=== PATIENT | female | born 1960 | race Caucasian/White ===

== ENCOUNTER 2023-10-02 11:30 | Outpatient (RCR) | payer BC, SELFPAY | END 2024-01-03 09:48 | disposition home or self-care (01) | PROVIDERS: PCP Student in an Organized Health Care Education/Training Program; Visit Provider Student in an Organized Health Care Education/Training Program | DX: N39.46 Mixed incontinence (principal); N94.10 Unspecified dyspareunia; N94.2 Vaginismus; Z51.89 Encounter for other specified aftercare | CPT/HCPCS: 97110; 97112; 97162; 97535 ==

== ENCOUNTER 2024-11-03 03:57 | Day surgery (SDC) | payer BC, SELFPAY ==
--- OUTSIDE RECORDS SUMMARY | 2016-03-28 05:38 | XMS_ITS | Continuity of Care Document ---
Author Organization [facility] Address [address] [address] [place] [address] Phone Care Team Providers Care Measurement Supervisor Name Role Phone Link Db DUMONT Unavailable Unavailable Advance Directives Directive Yes / No Effective Date File Name No Information Encounters Encounter Description Practice Location Reason(s) For Visit Diagnoses Date Provider Providers Copied on Encounter [facility], [address] [address], [place], [place], [id number], [place] tel:[phone] [facility] No Information Link MD Ace. [address] [facility], [facility] [address], [place], [place], [id number], [place]. tel:[phone] Referring Provider: Perla Billy MD [place], [address] [place], [address]. tel:[phone] Family History Family Member Type Diagnosis Age At Onset No Information Payers Payer name Insurance type Covered alliance party ID Authoriza tion(s) No Information Social History Type Description Quantity Date Captured Comments Sex Female Smoking Status No Information Chief Complaint And Reason For Visit No Information Reason For Referral Reason For Referral No Information History Of Present Illness Encounter Date Complaint History Of Prese nt Illness No Information Functional Status Date Functional Assessmen t No Information Instructions Date Instruction Additional Infor mation No Information Assessments Type Assessment Date No Information Patient Care Teams Name Effective Dates (start - stop) Status Members No Information
--- OUTSIDE RECORDS SUMMARY | 2016-03-28 05:38 | XMS_ITS | Continuity of Care Document ---
Author Organization [facility] Address [address] [address] [place] [address] Phone Care Team Providers Care Order Filler Name Role Phone Link Db DUMONT Unavailable Unavailable Advance Directives Directive Yes / No Effective Date File Name No Information Encounters Encounter Description Practice Location Reason(s) For Visit Diagnoses Date Provider Providers Copied on Encounter [facility], [address] [address], [place], [place], [id number], [place] tel:[phone] [facility] No Information Link MD Ace. [address] [facility], [facility] [address], [place], [place], [id number], [place]. tel:[phone] Referring Provider: Perla Billy MD [place], [address] [place], [address]. tel:[phone] Family History Family Member Type Diagnosis Age At Onset No Information Payers Payer name Insurance type Covered constitution party ID Authoriza tion(s) No Information Social [...]
[2024-11-03] VITALS (20 sets, daily range): BP systolic 100–144; BP diastolic 60–115; PULSE 64–91; RESP 12–20; TEMP 36.7–36.9; O2SAT 89–98; BMI 42.2
--- OUTSIDE RECORDS SUMMARY | 2024-11-03 03:59 | XMS_ITS | Clinical Summary ---
Author Organization [facility] Address [address] [place] [address] Care Team Providers Care Wooden Box Maker Name Role Phone Valentine Schaefer MD Primary Care Prov ider Allergies Active Allergy Reactions Criticality Noted Date Comments Latex Contact Dermatitis 12/18/2018 Medications CPAP New CPAP at 11 cm, with mask of choice, supplies a needed, heat and humidity & climate controlled tubing; length of need 99; call her to make CPAP appointment to get CPAP and f/u with me in 1 month 1 Device 0 06/26/19 14 Active sfnphnx-eajb-by lod-htmf-vpxufs 100 mg-150 mg- 50 mg-150 mg capIndications: Arthralgia, unspecified joint Take by mouth. 0 02/11/20 21 Active Famotidine-Ca Carb-Mag Hydrox (Pepcid Complete) 10-800-165 mg chew As needed 0 02/15/20 21 Active clotrimazole (LOTRIMIN) 1 % creamIndication s:Vulvar candidiasis Apply topically to affected area(s) two times daily. Use for 10-14 days. 60 g 09/09/19 24 Active hydrOXYzine HCL (ATARAX) 25 mg tabletIndicatio ns:Anxiety Take 2 Tablets (50 mg) by mouth every 6 hours if needed for Anxiety. 90 Tablet 3 11/19/19 24 Active cholecalciferol , Vitamin D3, (Vitamin D-3) 5,000 unit tab tablet Take by mouth once daily. Active estradioL 0.01% (0.1 mg/g) vaginal creamIndication s:Genitourinary syndrome of menopause Apply 1 g/day intravaginally for 2 weeks, then 1 g one to three times per week. 42.5 g 3 08/27/19 25 Active clindamycin 1 % gelIndications: Folliculitis Apply thin layer to affected areas 1-2 times a day as needed. 60 g 11 09/30/19 25 Active buPROPion 300 mg Extended-Releas e tabletIndicatio ns:JATINDER (generalized anxiety disorder),Depre ssion, major, single episode, severe (HC) Take 1 Tablet (300 mg) by mouth once daily. 90 Tablet 3 10/08/19 25 Active buPROPion 150 mg Extended-Releas e tabletIndicatio ns:JATINDER (generalized anxiety disorder),Depre ssion, major, single episode, severe (HC) Take 1 tablet (150mg) once daily for 1 week then increase to 300mg once daily 60 Tablet 1 08/27/19 25 025 Discontin ued(Reord er (E-cancel not sent)) Active Problems Problem Noted Date Diagnosed Date H/o Bulimia nervosa 09/09/2023 Overview (09/09/2023): H/o bulimia in 20s/30s. Has been through eating disorder treatment. She has had history of gastric sleeve. Has a lot of concern about her weight impairing her ability to move. She would like weight loss medication. JATINDER (generalized anxiety disorder) 09/09/2023 Overview (09/27/2023): Stopped lexapro, worsened anxiety On sertraline Depression, major, single episode, severe 2023 Genitourinary syndrome of menopause 09/09/2023 Overview (09/27/2023): On topical estradiol S/P bariatric surgery 07/15/2014 Pre-diabetes 04/15/2013 Sleep apnea 04/06/2013 Rosacea 02/11/2013 Vitamin D deficiency 08/29/2009 Resolved Problems Problem Noted Date Diagnosed Date Resolved Date Pap smear for cervical cancer screening 07/02/2023 07/02/2023 Overview (07/02/2023): 06/2023 NIL/HPV negative Plan: Pap/HPV due 06/2028 Ureteral stone with hydronephrosis 11/13/2018 09/09/2023 Abdominal pannus 08/13/2017 09/09/2023 Overview (08/13/2017): Added automatically from request for surgery [id number] Morbid obesity 04/06/2013 07/15/2017 Encounters Date Type Department Care Team Description 10/08/2024 Telephone [facility] [address] [place] [address] Ousmane Bellamy MD 10/08/2024 Refill [facility] [address] [place] [address] Ousmane Bellamy MD 10/07/2024 9:50 AM CDT Office Visit [facility] [address] [place] [address] Valentine Schaefer MD Follow Up (Wellbutrin - feeling good ) 10/07/2024 Travel 09/29/2024 10:30 AM CDT Office Visit [facility] [id number] [place] [address] [address] [place] [address] Penny Hein MD Derm Problem 09/29/2024 Travel 09/15/2024 7:30 AM CDT Nurse/Clinic Staff Only [address] [address] Testing (HST Return/Download) 09/14/2024 2:00 PM CDT Nurse/Clinic Staff Only [address] [address] Testing (HST Set-up) 09/14/2024 Procedure Only [address] [address] Ousmane Bellamy MD Results (HST) 09/14/2024 Travel 09/08/2024 10:30 AM CDT Office Visit [facility] [id number] [place] [address] [address] [place] [address] Marcos Quiles MD Consult (Panniculectomy and Mons Pubis excess Skin) 09/08/2024 Travel 08/26/2024 10:15 AM CDT Office Visit [facility] [address] [place], [place] [id number] Valentine Schaefer MD Physical (64 year old ); Medication Management (Anxiety has improved. /Energy is down, no motivation/Would like to wean off Cymbalta ) 08/26/2024 Travel from Last 3 Months Immunizations Immunization Administration Dates Next Due COVID-19 vaccine ([employer] 30mcg/0.3mL) P F, MDV 09/26/2020,09/05/2020 Influenza, IIV3 (Age >=3 years) 03/24/2011 Pneumococcal Conj 20-valent (Prevnar 20) 025 Td (Age >=7 Years) 09/27/2023 Tdap 08/25/2009 Zoster (Shingrix-RZV, recombinant) 12/18/2023, Family History Medical History Relation Name Comments Heart Disease Father heart disease in hi s80s Heart Disease Maternal Grandmother Cancer Mother melanoma Cancer-ovarian Mother Unknown Paternal Grandfather Unknown Paternal Grandmother Diabetes Paternal Uncle 1 Cancer Paternal Uncle 2 stomach CA Cancer-breast No Family History Relation Name Status Comments Brother Alive 1/2 Father Other no contact or h x Maternal Grandfather no cont act Maternal Grandmother (Age 86) ca bg, heart disease Mother Alive melanoma Paternal Grandfather Paternal Grandmother Paternal Uncle 1 Paternal Uncle 2 Social History Tobacco Use Types Packs/Day Years Used Date Smoking Tobacco: Former Cigarettes Smokeless Tobacco: Never Tobacco Cessation:Counseling Given: Not Answered Comments:Quit in her 20's Alcohol Use Standard Drinks/Week Comments Yes 4 (1 standard drink = 0.6 oz pur e alcohol) PHQ-2 Answer Date Recorded PHQ-2 TOTAL SCORE 4 08/26/2024 Social Connections Answer Date Recorded Do you often feel lonely or isolated from those around you? 0 10/07/2024 Financial Resource Strain Answer Date R ecorded Difficulty of Paying Living Expenses 3 10/07/2024 Difficulty of Paying Living Expenses Not on file 10/07/2024 Food Insecurity Answer Date Recorded Do you worry your food will run out before you are able to buy more? 1 10/07/2024 Transportation Needs Answer Date Record ed Does lack of transportation keep you from medica l appointments? 1 10/07/2024 Does lack of transportation keep you from work, meetings or getting things that you need? 1 10/07/2024 Housing Stability Answer Date Recorded What is your housing situation today? 1 10/07/2024 Utilities Answer Date Recorded Do you have trouble paying f or utilities (for example, heat, electricity, water, phone)? 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 Not on file Not on file N ot on file Obstetrics History Para Term AB IAB SAB Ectopic Multiple Livin g Live Births 3 1 Date Outcome GA Total Labor Labor/2nd/3rd Weight Sex Type Anes PTL Misa A1 A5 Name Clin Para Last Filed Vital Signs Vital Sign Reading Time Taken Comments Blood Pressure 125/84 10/07/2024 9:59 AM CDT Pulse 71 10/07/2024 9:59 AM CDT Temperature 36.8 C (98.2 F) 06/21/2023 10:57 AM WIRE MACHINE CUTTER Respiratory Rate 16 09/08/2024 11:01 AM CDT Oxygen Saturation 97% 10/07/2024 9:59 AM CDT Inhaled Oxygen Concentration - - Weight 109.8 kg (242 lb) 10/07/2024 9:59 AM CDT Height 158.1 cm (5' 2.25) 09/08/2024 11:01 AM C DT Body Mass Index 43.91 09/08/2024 11:01 AM CDT Plan of Treatment Upcoming Encounters Date Type Department Care Team (Late st Contact Info) Description 11/25/2024 10:00 AM CDT Office Visit [facility] [address] [place] [address] Ousmane Bellamy MD [address] [place] [address] Scheduled Procedures Name Priority Associated Diagnoses Date/Ti me SURGICAL PROCEDURE (TYPE PRO CEDURE DESCRIPTION BELOW) Elective Pannus, abdominal Intertrigo Health Maintenance Due Date Last Done Comments RSV vaccine for adults or (1 - Risk 60-74 years 1-dose series) 2020 COVID-19 vaccine series ( season) 2024 05/06/2021, 09/26/2020, 09/05/2020 Influenza Vaccine (Season Ended) 2025 03/24/2011 Mammogram for age 45-75 05/29/2025 05/29/19, 02/12/2023, 12/11/2021, Additional history exists BMI (ht and wt on same day) for age 18+ 09/08/2025 09/08/2024, 08/26/2024, 09/09/2023, Additional history exists Depression screening for age 12+ 09/08/2025 09/08/2024, 08/26/2024, 06/26/2024, Additional history exists Fecal testing sDNA-FIT (Cologuard) for age 45-75 07/03/2026 07/03/2023 Pap test for age 21-65 06/21/2028 , 06/21/2023, 06/23/2018, Additional history exists Lipids for age 45-75 08/26/2029 08/26/2024, 06/21/2023, 08/07/2022, Additional history exists Tetanus booster 09/26/2033 09/27/2023, 08/25/2009 Tdap Completed 08/25/2009 Hepatitis C screening for age 18-79 Completed 06/11/2018 HIV for age 15-65 Completed 06/21/2023 Zoster (shingles) series for age 50+ Completed 12/18/2023, 08/05/2023 Pneumococcal series for age 50+ Completed 08/26/2024 Hepatitis B series for 19+ Aged Out N o longer eligible based on patient's age to complete this topic Medical Devices Implanted Type Area Oil Pit Attendant Device Identifier Shelf Expiration Date Model / Serial / Lot Stent Uret [id number] P[employer]lex [employer] - [id number] Implanted:Qty: 1 on 12/19/2018 by Harshal Hightower MD at [facility] Left: Urethra [facility] 09/14/2021 [id number] / / [id number] Procedures Procedure Name Priority Date/Time Associated Diagnosis Comments HOME SLEEP TEST TYPE 3 PORTABLE Routine 09/14/2024 11:59 PM CDT S/P bariatric surgery BASIC METABOLIC PANEL Routine 08/26/2024 11:29 AM CDT S/P bariatric surgery VITAMIN B1 (THIAMINE) BLOOD Routine 08/26/2024 11:29 AM CDT S/P bariatric surgery VITAMIN B12 Routine 08/26/2024 11:29 AM CDT S/P bariatric surgery LIPID PANEL W REFLEX MEASURED LDL Routine 08/26/2024 11:29 AM CDT Screening cholesterol level HEPATIC FUNCTION PANEL Routine 08/26/2024 11:29 AM CDT Screening for metabolic disorder CBC WITH AUTO DIFFERENTIAL Routine 08/26/2024 11:29 AM CDT Routine general medical examination at a health care facility Screening for metabolic disorder HEMOGLOBIN A1C MONITORING (POCT) Routine 08/26/2024 11:27 AM CDT Pre-diabetes XR MAMMO LOAN BILAT SCREEN Routine 05/29/2024 3:30 PM WIRE MACHINE CUTTER Visit for screening mammogram SDNA-FIT EXTERNAL (COLOGUARD) Routine 07/03/2023 1:00 PM WIRE MACHINE CUTTER Screening for colon cancer ANTI HIV 1/2 Routine 06/21/2023 12:01 PM WIRE MACHINE CUTTER Encounter for screening for HIV HPV HIGH RISK Routine 06/21/2023 10:00 AM WIRE MACHINE CUTTER Cervical cancer screening ANTI HCV Routine 06/11/2018 9:36 AM WIRE MACHINE CUTTER Encounter for hepatitis C screening test for low risk patient from Last 3 Months or Most Recently Relevant to Health Maintenance Results * HOME SLEEP TEST TYPE 3 PORTABLE (09/14/2024 11:59 PM CDT) Narrative Ousmane Bellamy MD - 09/14/2024 11:59 PM CDT Ousmane Bellamy MD 09/15/2024 5:36 PM Home Sleep Test Name: Carmelita Cruz Location: [facility] notes: This is a single night home sleep apnea test. The study is performed in the context of a clinical suspicion for sleep apnea. Carmelita Cruz ( 1960) is studied using a T3 Device using nasal pressure transducer, thoracoabdominal respiratory impedence plethysmography belts, pulse oximetry, snore microphone and actigraphy for body position. The study is scored by a RPSGT and interpreted by a Diplomate of the [place] Board of [employer]. Raw summary data is scanned into this report as a separate document. An epoch by epoch review of the data has been performed by the interpreting physician. Scored following the AASM Manual for the Scoring of Sleep and Associated Events, V3. Respiratory Event Index (MICHAELA) Oxygen Desaturation Index (JAMES) REI4% 7.3 ODI4%: 6.9 REI3% 15.7 ODI3%: 19.3 Supine MICHAELA: 20.9 Johnny Saturation 85 % Lateral MICHAELA: 11.8 Time Below 88% 16.1 minutes Weight: Wt Readings from Last 1 Encounters: 09/08/24 108.4 kg (239 lb) Other data: Recording Duration: 510.0 minutes Time in Bed: 399.7 minutes Estimated sleep efficiency [%]: 93 % Oximeter Quality: 94.6 % Flow Quality: 100.0 % RIP Quality: 100.0 % Supine time: 166.8 minutes Average SpO2: 91.7 % Pulse Average: 55.0 bpm Additional Comments: None IMPRESSION: Obstructive Sleep Apnea (327.23, G47.33) RECOMMENDATIONS: - This is moderate sleep apnea - Treatment for obstructive sleep apnea is recommended and CPAP would generally be considered first-line therapy for this severity of sleep apnea. Consider auto-titrating CPAP 5-20 cm. - Consider a referral to Health Weight Management for patients with a BMI > 30. - Follow-up with a provider to discuss results is recommended. - Patients should be advised to avoid critical tasks, such as driving, whenever drowsy. - Patients should try to achieve at least 7-8 hours of sleep on a consistent basis. - The MICHAELA is a surrogate for AHI. For reimbursement and/or prior authorization purposes, it would be appropriate to list the MICHAELA as an AHI when the latter is accepted, but not the former. Ousmane Mitchellomate, Board of Sleep Medicine Recording Information Recording Date: 09/14/2024 Analysis Start Time: 12:20 AM Recording Tags: Analysis Stop Time: 6:59 AM Device Type: T3S Analysis Duration (TRT): 6h 39m Est. Total Sleep Time: 6h 24m Position and Analysis Time Duration Percentage Supine (in TST): 166.8 m 43.3 % Non-Supine (in TST): 217.9 m 56.6 % Upright (in TRT): 14.8 m 3.7 % Movement (in TST): 28.8 m 7.5 % Invalid Data (Excluded): 0 m 0 % Respiratory Indices Index Total Supine Non-supine Count Apneas + Hypopneas (REI3%): 15.7 /h 20.9 /h 11.8 /h 101 Apneas + Hypopneas (REI4%) 7.3 /h /h /h Apneas: 1.2 /h 0 /h 2.2 /h 8 Obstructive (OA): 0.9 /h 0 /h 1.7 /h 6 Mixed (MA): 0 /h 0 /h 0 /h 0 Central (CA): 0.3 /h 0 /h 0.6 /h 2 Hypopneas 3%: 14.5 /h 20.9 /h 9.6 /h 93 Hypopneas 4%: 0 /h 58 /h 35 /h 0 Respiration Rate (per m): 14.3 /m 14.3 /m 14.2 /m Percentage of Sleep Duration Snore: 37.6 % 43.3 % 33.3 % 144.7 m Flow Limitation: 0 % 0 % 0 % 0 m Average Snore Volume 67.4 dB Percent of time greater than 80dB: Percent of 10.1 % Oxygen Saturation (SpO2) Total Supine Non-supine Oxygen Desaturation Index (JAMES): 19.3 /h 26.3 /h 14 /h Average SpO2: 91.7 % 90.8 % 92.3 % Minimum SpO2: 85 % 85 % 86 % SpO2 Duration < 90% 10.5 % (40.6m) 20.3 % 3.2 % SpO2 Duration <= 88% 4.2 % (16.1m) 8.8 % 0.7 % Pulse in TST Quality Average: 55 bpm Oximeter: 94.6 % Maximum: 82 bpm Nasal Cannula: 100 % Minimum: 44 bpm Abdomen RIP: 100 % Duration < 40 bpm: 0 m Thorax RIP: 100 % Duration > 100 bpm: 0 m Valentine Schaefer MD SLEEP CENTER Fi nal Result * VITAMIN B1 (THIAMINE) BLOOD (08/26/2024 11:29 AM CDT) [facility] VITAMIN B1 (THIAMINE), BLOOD, LC/MS/MS 117 78 - 185 nmol/L [facility] Comment: (Note) Vitamin supplementation within 24 hours prior to blood draw may affect the accuracy of the results. This test was developed and its analytical performance characteristics have been determined by [facility]. It has not been cleared or approved by FDA. This assay has been validated pursuant to the CLIA regulations and is used for clinical purposes. [facility] [address] [place] [address],[address] [place] [id number] Yung Cespedes MD, PhD Blood BLOOD SPECIMEN / Unknown 08/26/2024 11:29 AM CDT 08/26/2024 11:29 AM CDT Valentine Schaefer MD SEND OUTS Fi nal Result [facility] [address] [place] [phone], [facility] [address] [place] [address], [address] [place] [address] * (ABNORMAL) LIPID PANEL W REFLEX MEASURED LDL (08/26/2024 11:29 AM CDT) [facility] CHOLESTEROL, TOTAL 281(H) <200 mg/dL [facility] HDL CHOLESTEROL 86 > OR = 50 mg/dL [facility] TRIGLYCERIDES 119 <150 mg/dL [facility] LDL-CHOLESTEROL 170(H) mg/dL (calc) [facility] Comment: Reference range: <100 Desirable range <100 mg/dL for primary prevention; <70 mg/dL for patients with CHD or diabetic patients with > or = 2 CHD risk factors. LDL-C is now calculated using the Dave calculation, which is a validated novel method providing better accuracy than the Friedewald equation in the estimation of LDL-C. [place] LEMUS et al. ETHAN. 2013;310(19): 9017-0965 (http://education.[employer]/faq/SOJ036) CHOL/HDLC RATIO 3.3 <5.0 (calc) [facility] NON HDL CHOLESTEROL 195(H) <130 mg/dL (calc) [facility] Comment: For patients with diabetes plus 1 major ASCVD risk factor, treating to a non-HDL-C goal of <100 mg/dL (LDL-C of <70 mg/dL) is considered a therapeutic option. Blood BLOOD SPECIMEN / Unknown 08/26/2024 11:29 AM CDT 08/26/2024 11:29 AM CDT Valentine Schaefer MD CHEMISTRY Fi nal Result [email or web address] [address] [place] [address], [facility] [address] [place] [address] * (ABNORMAL) CBC AND DIFFERENTIAL (08/26/2024 11:29 AM CDT) WHITE BLOOD CELL COUNT 3.3(L) 3.8 - 10.8 Thousand/u L [facility] RED BLOOD CELL COUNT 4.94 3.80 - 5.10 Million/uL [facility] HEMOGLOBIN 14.9 11.7 - 15.5 g/dL [facility] HEMATOCRIT 45.5(H) 35.0 - 45.0 % [facility] MCV 92.1 80.0 - 100.0 fL [facility] MCH 30.2 27.0 - 33.0 pg [facility] MCHC 32.7 32.0 - 36.0 g/dL [facility] Comment: For adults, a slight decrease in the calculated MCHC value (in the range of 30 to 32 g/dL) is most likely not clinically significant; however, it should be interpreted with caution in correlation with other red cell parameters and the patient's clinical condition. RDW 13.6 11.0 - 15.0 % [facility] PLATELET COUNT 242 140 - 400 Thousand/u L [facility] MPV 10.6 7.5 - 12.5 fL [facility] ABSOLUTE NEUTROPHILS 1,795 1,500 - 7,800 cells/uL [facility] ABSOLUTE LYMPHOCYTES 1,175 850 - 3,900 cells/uL [facility] ABSOLUTE MONOCYTES 261 200 - 950 cells/uL [facility] ABSOLUTE EOSINOPHILS 40 15 - 500 cells/uL [facility] ABSOLUTE BASOPHILS 30 0 - 200 cells/uL [facility] NEUTROPHILS 54.4 % [facility] LYMPHOCYTES 35.6 % [facility] MONOCYTES 7.9 % [facility] EOSINOPHILS 1.2 % [facility] BASOPHILS 0.9 % [facility] Blood BLOOD SPECIMEN / Unknown 08/26/2024 11:29 AM CDT 08/26/2024 11:29 AM CDT us Valentine Schaefer MD HEMATOLOGY Fi nal Result [email or web address] [address] [place] [address], [place] [phone] [facility] [address] [place] [address] * VITAMIN B12 (08/26/2024 11:29 AM CDT) VITAMIN B12 423 200 - 1,100 pg/mL [facility] Blood BLOOD SPECIMEN / Unknown 08/26/2024 11:29 AM CDT 08/26/2024 11:29 AM CDT Valentine Schaefer MD CHEMISTRY Fi nal Result Performing Organization Address City/[facility]/ZIP Co de Phone Number [email or web address] [facility] [address] [place] [address], [facility] [address] [place] [address] * LIVER PANEL (HEPATIC FUNCTION PANEL) (08/26/2024 11:29 AM CDT) Pathologist [facility] PROTEIN, TOTAL 7.0 6.1 - 8.1 g/dL [facility] ALBUMIN 4.5 3.6 - 5.1 g/dL [facility] GLOBULIN 2.5 1.9 - 3.7 g/dL (calc) [facility] ALBUMIN/GLOBULIN RATIO 1.8 1.0 - 2.5 (calc) [facility] BILIRUBIN, TOTAL 0.7 0.2 - 1.2 mg/dL [facility] BILIRUBIN, DIRECT 0.1 < OR = 0.2 mg/dL [facility] BILIRUBIN, INDIRECT 0.6 0.2 - 1.2 mg/dL (calc) [facility] ALKALINE PHOSPHATASE 67 37 - 153 U/L [facility] AST 21 10 - 35 U/L [facility] ALT 25 6 - 29 U/L [facility] Blood BLOOD SPECIMEN / Unknown 08/26/2024 11:29 AM CDT 08/26/2024 11:29 AM CDT Valentine Schaefer MD CHEMISTRY Fi nal Result [email or web address] [facility] [address] [place] [address], [place] [phone] [facility] [address] [place] [address] * BASIC METABOLIC PANEL (08/26/2024 11:29 AM CDT) Pathologist [facility] GLUCOSE 89 65 - 99 mg/dL [facility] Comment: Fasting reference interval UREA NITROGEN (BUN) 11 7 - 25 mg/dL [facility] CREATININE 0.67 0.50 - 1.05 mg/dL [facility] EGFR 98 > OR = 60 mL/min/1. 73m2 [facility] BUN/CREATININE RATIO SEE NOTE: 6 - 22 (calc) [facility] Comment: Not Reported: BUN and Creatinine are within reference range. SODIUM 140 135 - 146 mmol/L [facility] POTASSIUM 4.0 3.5 - 5.3 mmol/L [facility] CHLORIDE 103 98 - 110 mmol/L [facility] CARBON DIOXIDE 28 20 - 32 mmol/L [facility] ELECTROLYTE BALANCE 9 7 - 17 mmol/L (calc) [facility] CALCIUM 9.7 8.6 - 10.4 mg/dL [facility] Blood BLOOD SPECIMEN / Unknown 08/26/2024 11:29 AM CDT 08/26/2024 11:29 AM CDT Valentine Schaefer MD CHEMISTRY Fi nal Result [email or web address] [facility] [address] [place] [address], [facility] [address] [place] [address] * HEMOGLOBIN A1C MONITORING (POCT) (08/26/2024 11:27 AM CDT) [facility] POC HEMOGLOBIN A1C 5.6 <6.0 % OF TOTAL HGB [facility] Comment: Any point of care results exhibiting inconsistency with the patient's clinical status should be repeated using a different testing method. Blood BLOOD SPECIMEN / Unknown 08/26/2024 11:27 AM CDT 08/26/2024 11:28 AM CDT Valentine Schaefer MD CHEMISTRY Fi nal Result [facility] [address] [place] [address], [facility] [address] [place] [address] * XR MAMMO LOAN BILAT SCREEN (05/29/2024 3:30 PM WIRE MACHINE CUTTER) Anatomical Region Laterality Modality BREASTS, Breast Left, Breast Right Bilateral Mammography Impressions 05/29/2024 3:55 PM WIRE MACHINE CUTTER There is no radiographic evidence for malignancy. Recommend annual mammograms. MAMMOGRAM ASSESSMENT: ACR 1 Negative PATIENTS: You will also receive a letter with your examination results in an easy to read format. If you have questions about your results, please contact your referring provider. Narrative 05/29/2024 3:55 PM WIRE MACHINE CUTTER For Patients: As a result of the Century Cures Act, medical imaging exams and procedure reports are released immediately into your electronic medical record. You may view this report before your referring provider. If you have questions, please contact your health care provider. XR MAMMO LOAN BILAT SCREEN [[id number]] CLINICAL HISTORY: This is an asymptomatic 63 y.o. patient. INDICATION FOR EXAM: Mammogram Screening. TECHNIQUE: CC & MLO views were obtained. This study was evaluated with the assistance of Computer-Aided Detection. Breast Tomosynthesis was used in interpretation. COMPARISON FILM: [facility] FINDINGS: There are scattered areas of fibroglandular density. There are no dominant masses, suspicious micro calcifications or areas of architectural distortion. us Valentine Schaefer MD MAMMO Fi nal Result * SDNA-FIT EXTERNAL (COLOGUARD) (07/03/2023 1:00 PM WIRE MACHINE CUTTER) NONINV COLON CA DNA+OCC BLD SCRN STL-IMP Negative Negative 07/13/2023 12:24 AM WIRE MACHINE CUTTER [employer] [facility] (CLIA #:[id number]) Comment: NEGATIVE TEST RESULT. A negative Cologuard result indicates a low likelihood that a colorectal cancer (CRC) or advanced adenoma (adenomatous polyps with more advanced pre-malignant features) is present. The chance that a person with a negative Cologuard test has a colorectal cancer is less than 1 in 1500 (negative predictive value >99.9%) or has an advanced adenoma is less than 5.3% (negative predictive value 94.7%). These data are based on a prospective cross-sectional study of 10,000 individuals at average risk for colorectal cancer who were screened with both Cologuard and colonoscopy. (Matt James. et al, N Engl J Med 2014;370(14):8627-6290) The normal value (reference range) for this assay is negative. COLOGUARD RE-SCREENING RECOMMENDATION: Periodic colorectal cancer screening is an important part of preventive healthcare for asymptomatic individuals at average risk for colorectal cancer. Following a negative Cologuard result, the [place] [employer] and U.S. Multi-Society Task Force screening guidelines recommend a Cologuard re-screening interval of 3 years. References: [place] [employer] Guideline for Colorectal Cancer Screening: https://www.cancer.org/cancer/dspzh-qptdjd-rltmgk/mhnpckyqv-maroyjbau-eprjljz/ac s-rec ommendations.html.; Moshe HARRIS, José BAILON, Catherine EdouardK, Colorectal Cancer Screening: Recommendations for Physicians and Patients from the U.S. Multi-Society Task Force on Colorectal Cancer Screening , Am J Gastroenterology 2017; 112:4015-5067. TEST DESCRIPTION: Composite algorithmic analysis of stool DNA-biomarkers with hemoglobin immunoassay. Quantitative values of individual biomarkers are not reportable and are not associated with individual biomarker result reference ranges. Cologuard is intended for colorectal cancer screening of adults of either sex, 45 years or older, who are at average-risk for colorectal cancer (CRC). Cologuard has been approved for use by the U.S. FDA. The performance of Cologuard was established in a cross sectional study of average-risk adults aged 50-84. Cologuard performance in patients ages 45 to 49 years was estimated by sub-group analysis of near-age groups. Colonoscopies performed for a positive result may find as the most clinically significant lesion: colorectal cancer [4.0%], advanced adenoma (including sessile serrated polyps greater than or equal to 1cm diameter) [20%] or non- advanced adenoma [31%]; or no colorectal neoplasia [45%]. These estimates are derived from a prospective cross-sectional screening study of 10,000 individuals at average risk for colorectal cancer who were screened with both Cologuard and colonoscopy. (Matt Hanks et al, N Engl J Med 2014;370(14):4825-8515.) Cologuard may produce a false negative or false positive result (no colorectal cancer or precancerous polyp present at colonoscopy follow up). A negative Cologuard test result does not guarantee the absence of CRC or advanced adenoma (pre-cancer). The current Cologuard screening interval is every 3 years. ([place] [employer] and U.S. Multi-Society Task Force). Cologuard performance data in a 10,000 patient pivotal study using colonoscopy as the reference method can be accessed at the following location: www.Modebo/results. Additional description of the Cologuard test process, warnings and precautions can be found at www.[employer].com. Stool specimen (specimen) (Rectum) 07/03/2023 1:00 PM WIRE MACHINE CUTTER 07/04/2023 2:39 PM WIRE MACHINE CUTTER us Valentine Schaefer MD URINE Fi nal Result [employer] (CLIA #:[id number]) [address] [place] [address], * ANTI HIV 1/2 (06/21/2023 12:01 PM WIRE MACHINE CUTTER) HIV-1/HIV-2 SCREEN Non-Reacti ve Non-Reacti ve 06/21/2023 10:12 PM WIRE MACHINE CUTTER [facility] Comment:HIV-1 p24 and HIV-1/ HIV-2 Ab Not Detected. Blood BLOOD SPECIMEN / Unknown Butterfly / Unknown 06/21/2023 12:01 PM WIRE MACHINE CUTTER 06/21/2023 12:02 PM WIRE MACHINE CUTTER Valentine Schaefer MD SEND OUTS Fi nal Result Performing Organization Address City/[facility] Co de Phone Number [facility] [address] [place] [address], * HPV HIGH RISK (06/21/2023 10:00 AM WIRE MACHINE CUTTER) TYPE 16 Negative Negative 06/26/2023 1:29 PM WIRE MACHINE CUTTER [facility] TYPE 18 Negative Negative 06/26/2023 1:29 PM WIRE MACHINE CUTTER [facility] OTHER HIGH RISK TYPES Negative Negative 06/26/2023 1:29 PM WIRE MACHINE CUTTER [facility] Other (Cervical/Vagina l) Non-Blood / Unknown 06/21/2023 10:00 AM WIRE MACHINE CUTTER 06/24/2023 2:23 PM WIRE MACHINE CUTTER Narrative [facility] - 06/26/2023 1:29 PM WIRE MACHINE CUTTER HPV types 16, 18, 31, 33, 35, 39, 45, 51, 52, 56, 58, 59, 66 and 68 DNA were undetectable or below the pre-set threshold. Methodology: Arnoldo Earl 4800 HPV Test Valentine Schaefer MD MICROBIOLOGY Fi nal Result Performing Organization Address [facility] Co de Phone Number [facility] [address] [place] [address], * ANTI HCV (06/11/2018 9:36 AM WIRE MACHINE CUTTER) HEPATITIS C ANTIBODY Non-React leo Non-React leo 06/11/2018 2:21 PM WIRE MACHINE CUTTER [facility] Comment:Antibodies to HCV no t detected; does not exclude the possibility of exposure to HCV. Blood BLOOD SPECIMEN / Unknown Venipuncture / Unknown 06/11/2018 9:36 AM WIRE MACHINE CUTTER 06/11/2018 9:38 AM WIRE MACHINE CUTTER us Nori Menard CARTRIDGE MAKER SEND OUTS Final R esult [facility] [address] [place] [address], from Last 3 Months or Most Recently Relevant to Health Maintenance Insurance [facility] OF NON-IA-ITS Advance Directives * Full Code (Latest Code Status on File) Date Activated Date Inactivated Comments 12/19/2018 9:07 AM 12/19/2018 5:51 PM Care Teams Wooden Box Maker Relationship Specialty Start Date End Date Valentine Schaefer [place] [address] PCP - General Family Practice 08/20/23
[2024-11-03 04:09] LABS: Appearance Urine Slightly Cloudy (Clear); Bilirubin Urine 1+ (Negative); Blood Urine Trace-intact (Negative); Color Urine Yellow (Yellow); Glucose Urine Negative (Negative); Ketones Urine 4+ (Negative); Leukocyte Esterase Urine Negative (Negative); Nitrite Urine Negative (Negative); Protein Urine 2+ (Negative); Specific Gravity Urine >= 1.030 (1.000-1.030); Urobilinogen Urine 0.2 (0.2-1.0); pH Urine 5.5 (5.0-8.5)
[2024-11-03 04:16] LABS: Bacteria Urine Moderate; Mucus Urine Moderate; RBC Urine 0-2 (0-2); Squamous Epithelial Cell Urine Moderate (None-Few)
--- NOTE | 2024-11-03 04:22 | CRLHL7_ITS ---
For Patients: As a result of the 21st Century Cures Act, medical imaging exams and procedure reports are released immediately into your electronic medical record. You may view this report before your referring provider. If you have questions, please contact your health care provider. INDICATION: Upper abdominal pain. History of gastric sleeve. COMPARISON: None TECHNIQUE: CT examination of the abdomen and pelvis was performed following the uneventful intravenous administration of 117 cc of Isovue 370. Thin section axial images were obtained from the lung bases through the pubic symphysis. Oral contrast was not administered. Please note that all CT scans at this facility use dose modulation, iterative reconstruction, and/or weight-based dosing when appropriate to reduce radiation dose to as low as reasonably achievable. FINDINGS: LUNG BASES: The lung bases as visualized appear normal.The heart size is normal at the lung bases. LIVER/BILIARY SYSTEM:Hepatic steatosis. Minimal prominence of central intrahepatic biliary ductal system. Distended gallbladder with wall thickening and trace pericholecystic fluid likely due to acute cholecystitis. However, no stones are identified. No extrahepatic biliary ductal dilation or evidence choledocholithiasis.A prominent enhancing structure is noted adjacent to the gallbladder neck. This measures about 10 millimeters. This could represent a prominent lymph node. Enhancement pattern is similar to surrounding vasculature and it is also possible that this is an unusual aneurysm of an artery such as the cystic artery. I recommend sonography of the right upper quadrant with Doppler not only to evaluate the gallbladder but to see if this is a vascular structure. ADRENALS: Normal right adrenal gland. Indeterminate left adrenal gland measuring 2.1 centimeters. This could be evaluated by multiphase CT or multiphase MRI in the nonacute setting. KIDNEYS, URETERS and BLADDER:Scattered low-density lesions. Indeterminate due to their size but statistically most likely benign. No obstructive uropathy. The bladder appears normal SPLEEN:The spleen is unremarkable PANCREAS: Appears normal. RETROPERITONEUM and MESENTERY: There is no mass, adenopathy or aortic aneurysm. Atherosclerotic vascular calcification GASTROINTESTINAL SYSTEM: There is no evidence of diverticulitis, colitis, mechanical obstruction, or appendicitis. The small bowel as visualized appears normal.Status post gastric sleeve procedure without visible associated complication. PELVIS: No mass, adenopathy or free fluid. OSSEOUS STRUCTURES and ABDOMINAL WALL: There is an age-appropriate appearance of the osseous structures.No significant abdominal wall defect. OTHER: No free fluid or free air. IMPRESSION: 1. Distended gallbladder with wall thickening and trace pericholecystic fluid likely due to acute cholecystitis. No stones are identified on this exam. 2. Rounded, enhancing structure immediately adjacent to the gallbladder neck. Differential considerations are an inflamed lymph node or an abnormal vascular structure such as an aneurysm of a small regional artery such as the cystic artery. 3. Sonography is advised for further evaluation of the gallbladder and biliary system. The other purposes would be Doppler to try to evaluate whether this structure is a lymph node or an abnormally dilated vessel. Please note that all CT scans at this facility use dose modulation, iterative reconstruction, and/or weight-based dosing when appropriate to reduce radiation dose to as low as reasonably achievable. Dictated by Sage Freeman MD @ 11/03/2024 5:42:29 AM (Electronically Signed)
[2024-11-03] MEDS: ONDANSETRON 2 MG/ML inj 4 MG IVP (04:27)
[2024-11-03] MEDS: HYDROmorphone 0.5 mg/0.5 ml inj IVP ×3 (04:27→07:51)
--- NOTE | 2024-11-03 04:27 | ED_ITS ---
HPI - General Adult General Chief complaint: Abdominal Pain Stated complaint: abdominal pain Time Seen by Provider: 11/03/24 04:11 Source: patient Mode of arrival: ambulatory Limitations: no limitations History of Present Illness HPI narrative: [age] year female presents the emergency department for evaluation of right upper abdominal pain does radiate into the back and up to the right breast. It has been present for the past 3 days, intermittent. Accompanied by sensation of nausea today. No fever. No trauma or injury. No prior history of gallbladder disease, gallstones or pancreatitis. Does have a prior history of kidney stones. Has not noticed any dysuria or hematuria. She reports a prior history of gastric sleeve but cannot recall what hospital it was performed at or what year. Denies other intra-abdominal surgeries. Tried taking initially some ibuprofen on Saturday which temporarily helped somewhat. Pain has been waxing and waning. Tried Excedrin, aspirin within the last few days with mixed results, ibuprofen again at 12:30 a.m. with no improvement. Did try taking 1 leftover hydrocodone that she had from a dental extraction with limited improvement. No fever, no neurological changes, no cardiac symptoms. No severe shortness of breath. Denies prior history of similar symptoms. Reports her past medical history is notable for anxiety. Only home medication is bupropion. Surgical history notable for gastric sleeve, no other abdominal or chest surgeries. Nonsmoker. ROS is notable for the GI symptoms as described above, otherwise denies times 12 systems. Related Data Home Medications ?Medication ?Instructions ?Recorded ?Confirmed bupropion HCl 300 mg 24 hr tablet, 300 mg PO DAILY 11/03/24 extended release Allergies Allergy/AdvReac Type Severity Reaction Status Date / Time No Known Drug Allergies Allergy Verified 11/03/24 04:05 [facility] Medical History Genitourinary syndrome of menopause ?N95.8 - Other specified menopausal and perimenopausal disorders (ICD-10) History of bulimia nervosa ?Z86.59 - Personal history of other mental and behavioral disorders (ICD-10) Vitamin D deficiency ?E55.9 - Vitamin D deficiency, unspecified (ICD-10) Ureteral stone with hydronephrosis ?N13.2 - Hydronephrosis with renal and ureteral calculous obstruction (ICD- 10) Sleep apnea ?G47.30 - Sleep apnea, unspecified (ICD-10) Rosacea ?L71.9 - Rosacea, unspecified (ICD-10) Prediabetes ?R73.03 - Prediabetes (ICD-10) Morbid obesity ?E66.01 - Morbid (severe) obesity due to excess calories (ICD-10) Depression ?F32.A - Depression, unspecified (ICD-10) Chronic pain of right knee ?M25.561 - Pain in right knee (ICD-10) ?G89.29 - Other chronic pain (ICD-10) Anxiety ?F41.9 - Anxiety disorder, unspecified (ICD-10) Abdominal pannus ?E65 - Localized adiposity (ICD-10) Surgical History History of bariatric surgery ?Z98.84 - Bariatric surgery status (ICD-10) History of section ?Z98.891 - History of uterine scar from previous surgery (ICD-10) H/O gastric sleeve ?Z90.3 - Acquired absence of stomach [part of] (ICD-10) Social History Smoking Status: Former smoker Second hand tobacco smoke exposure: No How often do you have a drink containing alcohol: never AUDIT-C Alcohol total score: 0 Non-prescribed substance use: denies use Exam Const: Vital Signs, click to edit/add: Vital Signs - 24 hr 11/03/24 04:01 11/03/24 04:29 11/03/24 04:52 Temperature 98.0 F Pulse Rate [Right Pulse Oximeter] 91 72 Respiratory Rate 18 20 Blood Pressure [Ri ght Upper Arm] 132/100 H 144/77 H Pulse Oximetry 96 96 95 Oxygen Delivery Me thod Room Air Room Air Oxygen Flow Rate 11/03/24 05:35 11/03/24 05:42 11/03/24 05:44 Temperature Pulse Rate [Right Pulse Oximeter] 64 Respiratory Rate 18 16 Blood Pressure [Ri ght Upper Arm] 140/62 H Pulse Oximetry 89 89 94 Oxygen Delivery Me thod Room Air Room Air Nasal Cannula Oxygen Flow Rate 2 Documenting provider has reviewed patient's vital signs: yes Common normals: alert Other: A little distraught with pain, difficult to get her to focus but cooperates with exam. HENMT: Common normals: normocephalic and oropharynx normal Head and scalp: normocephalic Mouth: oral and palatal mucosa normal Eye: Common normals: conjunctivae normal General eye: normal appearance of both eyes Conjunctiva: conjunctiva(e) normal Neck & C-Spine: Common normals: no lymphadenopathy General: normal visual inspection Resp: Common normals: normal respiratory effort and no use of accessory muscles Effort & inspection: able to speak in complete sentences Cardio: Common normals: regular rate, regular rhythm, S1 normal heart sound, S2 normal heart sound and no murmurs Rate: regular rate Rhythm: regular rhythm Heart sounds: S1 normal and S2 normal GI: Common normals: Normal to inspection, nondistended, normoactive bowel sounds present and no hepatosplenomegaly Palpation: no hepatosplenomegaly Other: Soft and nondistended but tender to the epigastrium and right upper quadrant area. Mild guarding but no rebound tenderness. Bowel sounds are normoactive no obvious mass. : Common normals: no CVA tenderness Bladder/kidney exam: no CVA tenderness Back & Pelvis: Common normals: no CVA tenderness and thoracic and lumbar spine normal to inspection Extremity: Common normals: normal capillary refill Neuro: Common normals: moves all extremities Sensorium/orientation: alert Psych: Appearance: grossly normal Attitude: engaged Insight: insight good Judgement: judgment good Skin: Common normals: no rashes or lesions noted General skin exam: no rashes or lesions noted Course Course ED Course: [age] old female with prior history of gastric sleeve surgery presenting with right-sided abdominal pain suspicious for gallstone, cholecystitis, pancreatitis, gastric complication from prior bariatric surgery, nephrolithiasis, atypical presentation of bowel obstruction or ischemic bowel, enteritis, amongst others. Will start with urinalysis, typical intra-abdominal labs. Because the pain does radiate up to the chest, would also recommend a troponin EKG. Anticipate CT scan of the abdomen and pelvis. May also need to do an ultrasound which is not readily available in the middle of the night. Therefore we will start with a CT and consider ultrasonography if needed to clarify further diagnosis. Will give have mg Dilaudid and 4 mg of Zofran for initial symptom management. Reevaluation(s) Time of Reevaluation #1: 06:00 Reevaluation #1: Patient informed of results. Cholecystitis suspected. Ultrasound needed to clarify ovoid structure. Will start Zosyn. Talked with surgical team, she will pass along to her partners and someone will plan to perform cholecystectomy later today. I will await ultrasound findings and then anticipate admission to hospitalist team to await surgery. Based on risk factors, patient is perceived to be low risk for surgery. Medic ally cleared to proceed with procedure at this time, no additional perioperative recommendations. will bring in her home CPAP for postoperative use. Anticipate same-day surgery stay. May require overnight for pain control and monitoring if remains hypoxic on narcotics. Maintenance fluids started, p.r.n. pain medication ordered as well. Time of Reevaluation #2: 07:14 Reevaluation #2: Bedside ultrasound showing no vascular status into the ovoid mass, likely lymph node. Awaiting final report. I have updated the hospitalist and surgical teams regarding the preliminary findings, they are in agreement. Patient will be admitted to same-day surgery under the care of the hospitalist awaiting surgical consult later this afternoon. May require overnight observation if any hypoxia but otherwise may be able to go home this evening. Maintenance fluids, NPO, p.r.n. pain meds have been ordered. Vital Signs Vital signs: Initial Vital Signs Temperature 98.0 F 11/03/24 04:01 Temperature Source Temporal Artery Scan 11/03/24 04:01 Pulse Rate 91 11/03/24 04:01 Respiratory Rate 18 11/03/24 04:01 Blood Pressure 132/100 H 11/03/24 04:01 Blood Pressure Mean 110 H 11/03/24 04:01 Blood Pressure Position Sitting 11/03/24 04:01 Pulse Oximetry 96 11/03/24 04:01 Oxygen Delivery Method Room Air 11/03/24 04:01 Vital Signs Temperature 98.0 F 11/03/24 04:01 Pulse Rate 91 11/03/24 04:01 Respiratory Rate 18 11/03/24 04:01 Blood Pressure 132/100 H 11/03/24 04:01 Pulse Oximetry 96 11/03/24 04:01 Oxygen Delivery Method Room Air 11/03/24 04:01 Temperature 98.0 F 11/03/24 04:01 Pulse Rate 64 11/03/24 05:35 Respiratory Rate 16 11/03/24 05:44 Blood Pressure 140/62 H 11/03/24 05:35 Pulse Oximetry 94 11/03/24 05:44 Oxygen Delivery Method Nasal Cannula 11/03/24 05:44 Oxygen Flow Rate 2 11/03/24 05:44 Medications Administered Medications: Generic Name Dose Route Start Last Admin Trade Name Freq PRN Reason Stop Dose Admin Piperacillin Sod/Tazobactam 100 mls @ 200 mls/hr 11/03/24 06:00 11/03/24 06:51 Sod 3.375 gm/ Sodium Chloride IVPB Infused Q6H TRACIE Infusion Lactated Ringer's 1,000 mls @ 125 mls/hr 11/03/24 05:50 11/03/24 06:19 Lactated Ringers 1000 Ml IV 125 mls/hr .Q8H TRACIE Administration Discontinued Medications Generic Name Dose Route Start Last Admin Trade Name Freq PRN Reason Stop Dose Admin Hydromorphone HCl 0.5 mg 11/03/24 04:22 11/03/24 04:27 Hydromorphone 0.5 Mg/0.5 Ml Inj IVP 11/03/24 04:23 0.5 mg ONCE ONE Administration Hydromorphone HCl 0.5 mg 11/03/24 05:26 11/03/24 05:27 Hydromorphone 0.5 Mg/0.5 Ml Inj IVP 11/03/24 05:27 0.5 mg ONCE ONE Administration Lactated Ringer's 1,000 mls @ 1,000 mls/hr 11/03/24 04:41 11/03/24 06:11 Lactated Ringers 1000 Ml IV 11/03/24 05:40 Infused .Q1H ONE Infusion Ondansetron HCl 4 mg 11/03/24 04:22 11/03/24 04:27 Ondansetron 2 Mg/Ml Inj IVP 11/03/24 04:23 4 mg ONCE ONE Administration Medical Decision Making Lab Data Lab results reviewed: Yes I reviewed the patient's lab results Lab results narrative: Mild elevation in LFTs most likely related to obesity. Bilirubin is not elevated to suggest obstruction. Creatinine reassuring. Urine is very concent rated but without signs of infection. Ketones are present indicating recent poor nutrition. No significant leukocytosis. Lipase and lactate reassuring. Labs: Lab Results 11/03/24 11/03/24 Range/Units 04:04 04:15 WBC 9.65 (4.50-11.00) K/uL RBC 4.45 (4.00-5.20) m/uL Hgb 15.7 (12.0-16.0) gm/dL Hct 41.2 (33.0-51.0) % MCV 93 (80-100) fL MCH 35 H (26-34) pg MCHC 38 H (32-36) gm/dL RDW Coeff of Sobeida 13.6 (11.5-15.5) % Plt Count 185 (140-440) K/uL Neut % (Auto) 82.0 H (42.0-72.0) % Lymph % (Auto) 8.9 L (20-44) % Phelps % (Auto) 8.3 (0.0-11.0) % Eos % (Auto) 0.2 (0.0-7.0) % Baso % (Auto) 0.2 (0.0-3.0) % Neut # (Auto) 7.90 H (1.7-7.0) K/uL Lymph # (Auto) 0.90 (0.90-2.90) K/uL Phelps # (Auto) 0.80 (0.00-0.90) K/UL Eos # (Auto) 0.02 (0.00-0.50) K/uL Baso # (Auto) 0.02 (0.00-0.30) K/uL Abs Immat Gran (auto) 0.04 (0.00-0.30) K/uL Imm/Tot Granulo (auto) 0.4 % Sodium 135 (135-149) mmol/L Potassium 3.9 (3.6-5.1) mmol/L Chloride 102 (96-114) mmol/L Carbon Dioxide 20 (20-32) mmol/L Anion Gap 13 (7-15) mEq/L BUN 14 (7-30) mg/dL Creatinine 0.6 (0.5-1.5) mg/dL Estimated Creat Clear 47.01 Estimated GFR 100 ml/min Glucose 127 H (60-115) mg/dL Lactate 1.9 (0.5-1.9) mmol/L Calcium 9.4 (8.4-10.6) mg/dL Total Bilirubin 1.3 (0.1-1.5) mg/dL AST 39 H (12-35) U/L ALT 65 H (4-35) U/L Alkaline Phosphatase 75 (40-150) U/L Troponin I < 0.01 (0.01-0.04) ng/mL C-Reactive Protein 14.6 H (0.5-1.0) mg/dL Total Protein 7.5 (6.0-8.3) g/dL Albumin 4.4 (3.3-5.0) g/dL Lipase 36 (23-300) U/L Urine Color Yellow (Yellow) Urine Appearance Slightly Cloudy A (Clear) Urine pH 5.5 (5.0-8.5) Ur Specific [place] >= 1.030 (1.000-1.030) Urine Protein 2+ A (Negative) Urine Glucose (UA) Negative (Negative) Urine Ketones 4+ A (Negative) Urine Blood Trace-intact A (Negative) Urine Nitrite Negative (Negative) Urine Bilirubin 1+ A (Negative) Urine Urobilinogen 0.2 (0.2-1.0) Ur Leukocyte Esterase Negative (Negative) Urine RBC 0-2 (0-2) Urine WBC 2-5 (0-5) Ur Squamous Epith Cells Moderate A (None-Few) Urine Bacteria Moderate A (None) Urine Mucus Moderate A (None) Imaging Data CT scan - abdomen: My impression: Thickened gallbladder wall, distended gallbladder and some surrounding fluid suggestive of cholecystitis. Gallbladder neck does appear normal. There is a ovoid structure next 2 common bile duct suspicious for lymph node. Radiologist's impression: IMPRESSION: 1. Distended gallbladder with wall thickening and trace pericholecystic fluid likely due to acute cholecystitis. No stones are identified on this exam. 2. Rounded, enhancing structure immediately adjacent to the gallbladder neck. Differential considerations are an inflamed lymph node or an abnormal vascular structure such as an aneurysm of a small regional artery such as the cystic artery. 3. Sonography is advised for further evaluation of the gallbladder and biliary system. The other purposes would be Doppler to try to evaluate whether this structure is a lymph node or an abnormally dilated vessel. ECG Data Attestation: I personally reviewed and interpreted this ECG as follows: Prior ECG tracings: not available for review Interpretation: Sinus rhythm with a rate of 72. Normal intervals and axis. No significant ST or T-wave abnormalities. Normal EKG. No prior comparison available Discharge Plan Discharge Clinical Impression: Acute cholecystitis Patient Disposition: XFER to OR Condition: Stable Follow Up/Referrals: Valentine Schaefer MD [Primary Care Provider, [facility]]
[2024-11-03 04:33] LABS: Lactate* 1.9 mmol/L (0.5-1.9)
[2024-11-03 04:35] LABS: Basophils Absolute Auto 0.02 K/uL (0.00-0.30); Basophils Percent Auto 0.2 % (0.0-3.0); Eosinophils Absolute Auto 0.02 K/uL (0.00-0.50); Eosinophils Percent Auto 0.2 % (0.0-7.0); Hematocrit 41.2 % (33.0-51.0); Hemoglobin* 15.7 gm/dL (12.0-16.0); Immature Granulocytes Abs Auto 0.04 K/uL (0.00-0.30); Immature Granulocytes Pct Auto 0.4 %; Lymphocytes Percent Auto 8.9 % (20-44); Mean Corpuscular HGB Conc 38 gm/dL (32-36); Mean Corpuscular Hemoglobin 35 pg (26-34); Mean Corpuscular Volume 93 fL (80-100); Monocytes Percent Auto 8.3 % (0.0-11.0); Platelet Count* 185 K/uL (140-440); RDW Coefficient of Variation % 13.6 % (11.5-15.5); Red Blood Count 4.45 m/uL (4.00-5.20); Slide Review Reflex No; White Blood Count* 9.65 K/uL (4.50-11.00)
[2024-11-03] MEDS: LACTATED RINGERS 1000 ML 1,000 ML IV (04:46)
[2024-11-03 05:08] LABS: Albumin* 4.4 g/dL (3.3-5.0); Chloride* 102 mmol/L (96-114)
[2024-11-03 05:09] LABS: Potassium* 3.9 mmol/L (3.6-5.1); Sodium* 135 mmol/L (135-149)
[2024-11-03 05:11] LABS: Alanine Aminotransferase* 65 U/L (4-35); Aspartate Amino Transferase* 39 U/L (12-35); Blood Urea Nitrogen* 14 mg/dL (7-30); Creatinine* 0.6 mg/dL (0.5-1.5); Est. Creatinine Clearance* 47.01; Estimated Glomerular Filt Rate 100 ml/min
[2024-11-03 05:12] LABS: Alkaline Phosphatase* 75 U/L (40-150); Anion Gap 13 mEq/L (7-15); Bilirubin Total* 1.3 mg/dL (0.1-1.5); Calcium* 9.4 mg/dL (8.4-10.6); Carbon Dioxide* 20 mmol/L (20-32); Glucose* 127 mg/dL (60-115); Lipase* 36 U/L (23-300); Total Protein* 7.5 g/dL (6.0-8.3)
[2024-11-03 05:26] LABS: C Reactive Protein* 14.6 mg/dL (0.5-1.0); Troponin I* < 0.01 ng/mL (0.01-0.04)
[2024-11-03] MEDS: PIPERACILLIN/TAZOBACTAM 3.375 GM in 0.9 % SODIUM CHLORIDE Mini-bag 100 ML IVPB (05:55)
[2024-11-03] MEDS: LACTATED RINGERS 1000 ML 1,000 ML 125 ML IV (06:19)
--- NOTE | 2024-11-03 06:30 | CRLHL7_ITS ---
For Patients: As a result of the Century Cures Act, medical imaging exams and procedure reports are released immediately into your electronic medical record. You may view this report before your referring provider. If you have questions, please contact your health care provider. Indication: Cholecystitis, evaluate lymph node versus aneurysm. TECHNIQUE: Ultrasound abdomen limited. Sonographic images of the right upper quadrant were obtained using rose-scale and color Doppler images. Comparison: Abdomen and pelvis CT 11/03/2024 FINDINGS: Gallbladder: Cholelithiasis with gallbladder wall thickening, striated wall and positive sonographic Hsieh`s sign. Common bile duct: 7 mm. Adjacent to the gallbladder is a 1.2 centimeter structure corresponding to the CT abnormality which shows no abnormal blood flow. Impression: 1. Gallbladder wall thickening, cholelithiasis and positive sonographic Hsieh`s sign consistent with acute cholecystitis. 2. Mildly dilated common duct. No choledocholithiasis seen although much of the is obscured by bowel gas. 3. Pericholecystic hypoechoic lesion measuring 1.2 centimeters with sonographic appearance consistent with a reactive lymph node. This corresponds to the CT finding. Dictated by Javi Dior MD @ 11/03/2024 7:13:35 AM (Electronically Signed)
--- NOTE | 2024-11-03 08:42 | PM.GSHP ---
History of Present Illness History of Present Illness Date Seen: 11/03/24 Chief complaint: abdominal pain Narrative: Carmelita Cruz is a 64 year old female Presented to emergency room with right upper quadrant and right back pain. The pain started on Saturday. The pain was persistent and severe. Patient was not able to get comfortable. She took ibuprofen and that improved her pain somewhat. On Saturday she was feeling better. On Saturday she was planning to go and see a doctor in clinic but was feeling okay. However, towards the evening and then at night her pain became severe and she could not sleep. Patient's pain became so severe that she came to the emergency room in the middle of the night. She had nausea and several episodes of vomiting. She was passing gas yesterday. I personally reviewed her workup in the emergency room. She was found to have normal WBC. Her bilirubin was normal. She had a CT of 39 and ALT of 65 with normal alkaline phosphatase. An abdominal CT was obtained that showed a distended gallbladder with gallbladder wall thickening. There was an abnormal structure described adjacent to the gallbladder. This was of unknown etiology and was thought to be either a cystic artery aneurysm versus a lymph node. Gallbladder ultrasound was then obtained that showed that this adjacent structures most likely an enlarged node of Calot and had no abnormal blood flow in this area. The ultrasound also showed distended gallbladder with gallbladder wall thickening and presence of stones. The common bile duct was 7 mm. Review of Systems Narrative: General: no fevers HENT: no problems swallowing CV: no shortness of breath Resp: no cough GI: No nausea, vomiting, abdominal pain : no dysuria, no increased urinary frequency, no hematuria Skin: no new rashes Musculoskeletal: no back pain Neuro: no muscle weakness Psyche: no depression, no anxiety PFSH PFS Medical History Genitourinary syndrome of menopause ?N95.8 - Other specified menopausal and perimenopausal disorders (ICD-10) History of bulimia nervosa ?Z86.59 - Personal history of other mental and behavioral disorders (ICD-10) Vitamin D deficiency ?E55.9 - Vitamin D deficiency, unspecified (ICD-10) Ureteral stone with hydronephrosis ?N13.2 - Hydronephrosis with renal and ureteral calculous obstruction (ICD-10) Sleep apnea ?G47.30 - Sleep apnea, unspecified (ICD-10) Rosacea ?L71.9 - Rosacea, unspecified (ICD-10) Prediabetes ?R73.03 - Prediabetes (ICD-10) Morbid obesity ?E66.01 - Morbid (severe) obesity due to excess calories (ICD-10) Depression ?F32.A - Depression, unspecified (ICD-10) Chronic pain of right knee ?M25.561 - Pain in right knee (ICD-10) ?G89.29 - Other chronic pain (ICD-10) Anxiety ?F41.9 - Anxiety disorder, unspecified (ICD-10) Abdominal pannus ?E65 - Localized adiposity (ICD-10) Surgical History History of bariatric surgery ?Z98.84 - Bariatric surgery status (ICD-10) History of section ?Z98.891 - History of uterine scar from previous surgery (ICD-10) H/O gastric sleeve ?Z90.3 - Acquired absence of stomach [part of] (ICD-10) Social History (Updated 11/03/24 @ 08:46 by Makayla Jackson MD) Narrative: Patient denies smoking, she drinks at least 1 alcoholic drink almost daily. She is currently not working. Smoking Status: Former smoker Second hand tobacco smoke exposure: No How often do you have a drink containing alcohol: never AUDIT-C Alcohol total score: 0 Non-prescribed substance use: denies use Meds Home Medications and Allergies Home Medications ?Medication ?Instructions ?Recorded ?Confirmed ?Type bupropion HCl 300 mg 24 hr tablet, 300 mg PO DAILY 11/03/24 11/03/24 History extended release Allergies Allergy/AdvReac Type Severity Reaction Status Date / Time No Known Drug Allergies Allergy Verified 11/03/24 04:05 Exam Narrative: Exam Narrative: General appearance: Alert, cooperative, and in no distress Pulmonary: Chest symmetric, lungs clear bilaterally Cardiovascular Heart: Regular rate and rhythm, S1, S2, no murmurs/rubs/gallops Gastrointestinal Abdominal: soft, not distended, tender to palpation in a right upper quadrant, patient is crying with minimal palpation in the right upper quadrant. Skin: Normal skin color, texture, and turgor. No rashes or lesions. Psychiatric: Alert, cooperative, normal affect. Const: Vital Signs, click to edit/add: Vital Signs - 24 hr 11/03/24 04:01 11/03/24 04:29 11/03/24 04:52 Temperature 98.0 F Pulse Rate [Right Pulse Oximeter] 91 72 Respiratory Rate 18 20 Blood Pressure [Ri ght Upper Arm] 132/100 H 144/77 H Pulse Oximetry 96 96 95 Oxygen Delivery Me thod Room Air Room Air Oxygen Flow Rate 11/03/24 05:35 11/03/24 05:42 11/03/24 05:44 Temperature Pulse Rate [Right Pulse Oximeter] 64 Respiratory Rate 18 16 Blood Pressure [Ri ght Upper Arm] 140/62 H Pulse Oximetry 89 89 94 Oxygen Delivery Me thod Room Air Room Air Nasal Cannula Oxygen Flow Rate 2 Progress Note:A&P Assessment and plan (1) Acute cholecystitis: Status: Acute Plan 64-year-old female presents with acute cholecystitis. I discussed with the patient her laboratory and imaging findings. Patient's abdominal CT and ultrasound showed distended gallbladder with gallbladder wall thickening. On clinical exam patient has tenderness to palpation in the right upper quadrant concerning for localized peritonitis. I recommended to proceed with laparoscopic cholecystectomy. The procedure was discussed in detail. The risks associated procedure including infection, bleeding, injury to intra-abdominal organs, and injury to the common bile duct were all discussed with the patient, and she agreed to proceed.
[2024-11-03] MEDS: LIDOCAINE 1%-EPI 1:100,000 20 ML INFILTRATI (10:21)
[2024-11-03] MEDS: BUPIVACAINE 0.25% 30 ML INJECTION (10:21)
--- NOTE | 2024-11-03 10:32 | P.GSOP_ITS ---
Operative Note Date of procedure: 11/03/24 Pre-op diagnosis: 1. Acute cholecystitis. Post-op diagnosis: Same Type of Procedure: 1. Laparoscopic cholecystectomy. Indications: 64-year-old female was seen in the emergency room with right upper quadrant and right back abdominal pain this started on Saturday. The pain was persistent and was sometimes getting better and getting worse. Patient took ibuprofen aspirin to help her pain and it helped initially. Last night the pain became so severe that patient could not tolerated in presented to emergency room. She also had nausea and vomiting. She was passing gas yesterday. Upon her workup she was found to have normal WBC. Her transaminases were mildly elevated with normal bilirubin. Abdominal CT was obtained that showed a distended gallbladder with gallbladder wall thickening concerning for acute cholecystitis. Gallbladder ultrasound was obtained that showed distended gallbladder with thickened gallbladder wall. There was evidence of stones in the gallbladder. Common bile duct was measured at 7 mm. On clinical exam patient had tenderness to mild palpation in the right upper quadrant with localized peritonitis. Given patient's clinical history and her physical exam, Acute cholecystitis was suspected and laparoscopic cholecystectomy was recommended. although patient has common bile duct was measured at 7 mm which is slightly above the upper limits of normal on the ultrasound, I did not suspect choledocholithiasis given her normal bilirubin. The procedure of laparoscopic cholecystectomy was discussed with the patient in detail. The risks associated procedure including infection, bleeding, injury to intra-abdominal organs, and injury to the common bile duct were all discussed with the patient, and she agreed to proceed. Procedure Description: After discussing the risks and benefits of the procedure, the patient signed informed consent.? The operative site was marked and the patient was brought to the operating room and placed on the operating table in supine position.? Care was taken to pad the patient's pressure points.?? The patient was then intubated by anesthesia.?? The operative site was then prepped and draped in the usual sterile fashion.? A time-out was then performed. A 5-mm laparoscopy port was placed in the left upper quadrant guided by a 5-mm laparoscope placed into a translucent trochar.~ Passage through the layers of the abdominal wall was visualized with the laparoscope.~ A pneumoperitoneum was established. A 0-degree 5-mm laparoscope was advanced into the abdomen. The abdomen was briefly surveyed, and no adhesions were noted. A 10-mm port were placed supraumbilically and two more 5 mm ports were placed on the right under direct visualization by laparoscope. The camera was then changed to 10 mm 30- degree scope and placed into the abdomen through the 10 mm port. The left upper quadrant port entrance was examined and no injury to intra-abdominal organs was identified. The gallbladder was identified, And was distended. Omentum was adherent to the gallbladder. These omental adhesions were taken down with suction tip bluntly. I was not able to grasp the gallbladder. The gallbladder was decompressed with laparoscopic needle and 50 mL syringe. Thin bile was suctioned out of the gallbladder. Bile was sent for culture. The fundus grasped and retracted cephalad. The infundibulum was grasped and retracted laterally, exposing the peritoneum overlying the triangle of Calot. This was then divided and exposed in a blunt fashion and with hook cautery. Common bile duct was not identified but care was taken not to injure it. The cystic duct was clearly identified and bluntly dissected circumferentially. Cystic artery was identified and tissues around it were dissected off. I first placed 2 5 mm clips on the patient's side on the cystic artery and a single clip on the specimen side. The cystic artery was then divided between the clips. This allowed better access to the cystic duct. The cystic duct was then ligated with surgical clips on the patient's side and singly clipped on the gallbladder side and divided. The clips on the cystic duct stump barely went across the cystic duct due to surrounding inflammation. I elected to place 0-0 PDS endoloop on the cystic duct stump. The first endoloop was placed between the clips. I then placed a second endoloop just proximal to all the cystic duct stump clips. The gallbladder was dissected from the liver bed in retrograde fashion using hookcautery. the gallbladder appeared to have hyperemic wall with patchy necrosis and edema in the gallbladder wall. During this dissection of the gal lbladder of the liver, the gallbladder wall was entered and bile with small stones spilled into abdominal cavity. When the gallbladder was free from the liver, it was placed into an Endo-Catch bag and removed through the supraumbilical incision. bile and spilled stones were all suctioned out with an open suction tip. Right upper quadrant was irrigated with copious amounts of normal saline and no stones were noted. Surgical site was examined for bleeding. No bleeding was seen in the surgical field. The fascia of the supraumbilical incision was then closed with 0-0 vicryl using Jasen Zoraida needle under direct visualization. Pneumoperitoneum was completely reduced after viewing removal of the trocars under direct vision. The skin was then closed with 4-0 monocryl and steristrips were applied. Instrument, sponge, and needle counts were correct at closure and at the conclusion of the case. The patient was transferred to PACU in stable condition. Findings: inflamed distended gallbladder due to acute cholecystitis and possible transmural necrosis of the gallbladder wall. Anesthesia: GETA Surgeon: Makayla Jackson MD Estimated blood loss (mL): 10 Additional Specimen Information: Gallbladder to pathology and bile for culture. Condition: stable Disposition: PACU
--- NOTE | 2024-11-03 10:41 | P.ANES_ITS ---
Anesthesia Charges Start Date/Time Anesthesia Start Date: 11/03/24 Anesthesia Start Time: 08:50 Stop Date/Time Anesthesia Stop Date: 11/03/24 Anesthesia Stop Time: 10:40 Summary Emergency: DIRECTOR OF AGRICULTURE Coding CPT Codes CPT Codes: ANESTH SURG UPPER ABDOMEN - 66903 ([id number]) P3 - PATIENT W/SEVERE SYS DISEASE, QZ - DIRECTOR OF AGRICULTURE SVC W/O ON AIR HOST BY Additional Codes: Summary - Emergency: DIRECTOR OF AGRICULTURE ([id number])
--- NOTE | 2024-11-03 10:41 | W.ANESCHARGE ---
Anesthesia Charges Start Date/Time Anesthesia Start Date: 11/03/24 Anesthesia Start Time: 08:50 Stop Date/Time Anesthesia Stop Date: 11/03/24 Anesthesia Stop Time: 10:40 Summary Emergency: CULLET WASHER Coding CPT Codes CPT Codes: ANESTH SURG UPPER ABDOMEN - 50592 ([id number]) P3 - PATIENT W/SEVERE SYS DISEASE, QZ - CULLET WASHER SVC W/O SUPERVISOR PIPE MANUFACTURE BY Additional Codes: Summary - Emergency: CULLET WASHER ([id number])
[2024-11-03] MEDS: HYDROCODONE-ACETAMIN 5-325 MG 1 TAB PO (11:40)
== END 2024-11-03 12:37 | disposition home or self-care (01) ==
LOC: ED 06:31 → SS 07:16 → MEDSURG 10:29
PROVIDERS: Family Medicine; Emergency Provider Family Medicine; PCP Student in an Organized Health Care Education/Training Program; Visit Provider Surgery
PROC: 0FT44ZZ Resection of Gallbladder, Percutaneous Endoscopic Approach (ICD-10-PCS; CPT 47562; principal; 2024-11-03 08:30)
DX: K80.00 Calculus of gallbladder with acute cholecystitis without obstruction (principal); R10.11 Right upper quadrant pain; G47.30 Sleep apnea, unspecified; R73.03 Prediabetes; E66.01 Morbid (severe) obesity due to excess calories; F32.A Depression, unspecified; F41.9 Anxiety disorder, unspecified; E55.9 Vitamin D deficiency, unspecified; Z98.84 Bariatric surgery status; Z90.3 Acquired absence of stomach [part of]; Z87.891 Personal history of nicotine dependence
CPT/HCPCS: 47562; 00790; 36415; 74177; 76705; 80053; 81001; 83605; 83690; 84484; 85025; 86140; 87070; 87075; 87086; 87205; 88304; 93005; 94761; 99140; 99284; 99285; A9270; J0330; J0665; J1100; J1171; J1630; J1885; J2405; J2543; J2704; J3010; J3490; J7120; Q9967